=== PATIENT | male | born 1945 | race African-American/Black ===

== ENCOUNTER 2017-11-08 10:11 | Emergency (ER) | payer SELFPAY ==
[2017-11-08] MEDS: DIPHTH,PERTUSS(ACELL),TET TOX 0.5 ML DISP.SYRIN. VAX IM (10:48)
== END 2017-11-08 10:48 | disposition home or self-care (01) ==
LOC: ER 10:11
DX: S00.211A Abrasion of right eyelid and periocular area, initial encounter (principal); E11.9 Type 2 diabetes mellitus without complications; Z79.899 Other long term (current) drug therapy; Z79.84 Long term (current) use of oral hypoglycemic drugs; W22.8XXA Striking against or struck by other objects, initial encounter; Y93.89 Activity, other specified; Y92.89 Other specified places as the place of occurrence of the external cause; Y99.8 Other external cause status
CPT/HCPCS: 90471; 90715; 99283

== ENCOUNTER 2021-01-22 15:55 | Emergency (ER) | payer OTHER ==
[~2021-01-22] VITALS: Ht 182.9 cm; Wt 91.0 kg
[2021-01-22 17:33] VITALS: BP 139/80
--- NOTE | 2021-01-22 18:06 | PHYS DOC ---
Past Medical History Past Medical History: Diabetes-Type II, High Cholesterol, Hypertension Past Surgical History: Other Additional Past Surgical Histo: TURP Smoking Status: Never Smoker Alcohol Use: None Drug Use: None General Adult EDM: Chief Complaint: FOREIGN BODY HPI: HPI: Patient is a 75 year old male who presents to the ED today complaining of swallowing a peppermint candy. Patient states he feels it stuck in his throat. He states he already had water and bread and successfully swallowed them with no difficulties but feels soreness on the right side of the throat. He states he is tolerating his secretions with no difficulties. Review of Systems: Review of Systems: Constitutional: Denies fever or chills. [] Eyes: Denies change in visual acuity. [] HENT: Reports swallowing peppermint candy, denies nasal congestion or sore throat. [] Respiratory: Denies cough or shortness of breath. [] Cardiovascular: Denies chest pain or edema. [] GI: Denies abdominal pain, nausea, vomiting, bloody stools or diarrhea. [] : Denies dysuria. [] Musculoskeletal: Denies back pain or joint pain. [] Integument: Denies rash. [] Neurologic: Denies headache, focal weakness or sensory changes. [] Psychiatric: Denies depression or anxiety. [] Heart Score: C/O Chest Pain: N/A Risk Factors: Risk Factors: DM, Current or recent (<one month) smoker, HTN, HLP, family history of CAD, obesity. Risk Scores: Score 0 - 3: 2.5% MACE over next 6 weeks - Discharge Home Score 4 - 6: 20.3% MACE over next 6 weeks - Admit for Clinical Observation Score 7 - 10: 72.7% MACE over next 6 weeks - Early Invasive Strategies Allergies: Allergies: Allergies Coded Allergies Type Severity Reaction Last Updated Verified No Known Drug Allergies 11/08/17 No Physical Exam: PE: Constitutional: Well developed, well nourished, no acute distress, non-toxic appearance. [] HENT: Normocephalic, atraumatic, bilateral external ears normal, oropharynx moist, no oral exudates, nose normal. [] Airways open, he tolerating his secretions very well. Eyes: PERRLA, EOMI, conjunctiva normal, no discharge. [] Neck: Normal range of motion, no tenderness, supple, no stridor. [] Cardiovascular:Heart rate regular rhythm, no murmur [] Lungs & Thorax: Bilateral breath sounds clear to auscultation [] Abdomen: Bowel sounds normal, soft, no tenderness, no masses, no pulsatile masses. [] Skin: Warm, dry, no erythema, no rash. [] Back: No tenderness, no CVA tenderness. [] Extremities: No tenderness, no cyanosis, no clubbing, ROM intact, no edema. [] Neurologic: Alert and oriented X 3, normal motor function, normal sensory function, no focal deficits noted. [] Psychologic: Affect normal, judgement normal, mood normal. [] Current Patient Data: Vital Signs: Vital Signs Date Time Temp Pulse Resp B/P (MAP) Pulse Ox O2 Delivery O2 Flow Rate FiO2 01/22/21 17:33 98.8 88 18 139/80 (110) 97 Room Air 98.8 EKG: EKG: [] Radiology/Procedures: Radiology/Procedures: [] Course & Med Decision Making: Course & Med Decision Making Pertinent Labs and Imaging studies reviewed. (See chart for details) This is a 75-year-old male patient presented to the ED today stating he swallowed a peppermint candy and he feels it could be stuck in his throat. Prior to coming to the ED he had bread and water which he swallowed successfully. He is currently tolerating his secretions very well. Reassured patient. Encouraged him to continue drinking and eating regular foods and return to the ED at any point symptoms worsen Dragon Disclaimer: Dragon Disclaimer: This electronic medical record was generated, in whole or in part, using a voice recognition dictation system. Departure Departure Impression: Primary Impression: Foreign body ingestion Qualified Codes: T18.9XXA - Foreign body of alimentary tract, part unspeci fied, initial encounter Disposition: HOME / SELF CARE / HOMELESS Condition: STABLE Referrals: NAINA PICHARDO MD (PCP) Follow-up in 1 week Patient Instructions: Swallowed Foreign Body, Adult Additional Instructions: You were evaluated in the emergency room, we encourage you to continue drinking and eating your regular diet. Come back to the ED at any point symptoms worsen MISTY POOLE APRN Jan 22, 2021 18:06
== END 2021-01-22 18:15 | disposition home or self-care (01) ==
LOC: ER 15:55
DX: T18.9XXA Foreign body of alimentary tract, part unspecified, initial encounter (principal); E78.00 Pure hypercholesterolemia, unspecified; I10 Essential (primary) hypertension; E11.9 Type 2 diabetes mellitus without complications; Y92.89 Other specified places as the place of occurrence of the external cause; X58.XXXA Exposure to other specified factors, initial encounter; Y93.89 Activity, other specified; Y99.8 Other external cause status
CPT/HCPCS: 99281